=== PATIENT | female | born 1980 ===

== ENCOUNTER 2018-06-08 13:32 | Outpatient (CLI) | payer BC, SELFPAY ==
--- NOTE | 2018-06-08 14:24 | PFT_ITS ---
PULMONARY FUNCTION TEST REPORT DATE OF SERVICE: June 08, 2018 REQUESTING PROVIDER: Ruben Jimenez Spirometry shows mild obstructive airways disease; no bronchodilator testing was carried out. Lung volumes show no evidence of restriction. Diffusion capacity normal. Airways resistance normal. IMPRESSION: Mild obstructive airways disease with no bronchodilator testing carried out. Clinical correlation recommended. /bonny D/ METHACHOLINE CHALLENGE TESTING DATE OF SERVICE: June 08, 2018 Good patient effort. After mild obstruction seen on spirometry, patient underwent methacholine challenge testing up to a methacholine concentration of 1mg/mL, at which point the patient had a 35% drop in FEV1. IMPRESSION: Strongly positive methacholine challenge test. Clinical correlation recommended. /[facility] D/
[2018-06-08] MEDS: Albuterol HFA 18 GM 200 PUFF INH IH (16:42)
[2018-06-08] MEDS: Methacholine 100 MG VIAL IH (16:42)
[2018-06-08] MEDS: Inhaler, Assist Device 1 EACH MC (16:42)
== END 2018-06-08 13:52 ==
PROVIDERS: PCP Family Medicine; Visit Provider Specialist/Technologist Athletic Trainer
DX: R06.2 Wheezing (principal)
CPT/HCPCS: 94060; 94150; 94726; 94729; 95070; 94010; J7674